=== PATIENT | male | born 1950 | race Caucasian/White ===

== ENCOUNTER 2021-07-14 15:12 | Emergency (ER) | payer MEDICARE, OTHER, SELFPAY ==
[2021-07-14 15:17] VITALS: BP 126/72; PULSE 91; RESP 17; TEMP 36.8; O2SAT 96; BMI 32.5
--- NOTE | 2021-07-14 15:23 | CT_ITS ---
STUDY: CT BRAIN WITHOUT CONTRAST REASON FOR EXAM: Male, 70 years old. FALL, HEAD INJURY RADIATION DOSAGE (If Supplied By Facility): CTDIvol = ( 44.99 ) mGy, DLP = ( 846.73 ) mGycm TECHNIQUE: Transaxial CT imaging of the brain was performed without administration of intravenous contrast material. Individualized dose optimization techniques were used for this CT. COMPARISON: No relevant priors. FINDINGS: Scalp hematoma and laceration overlying the posterior left occipital parietal bones. Normal calvarium. There is mild cerebral atrophy with widening of the extra-axial spaces and ventricular dilatation. There are areas of decreased attenuation within the white matter tracts of the supratentorial brain, consistent with microvascular disease changes. Normal basal ganglia and thalami. Normal brainstem. Normal cerebellum. There is no intracranial hemorrhage. There are no findings of an acute ischemic infarction. Atherosclerotic calcification of the cavernous portions of the internal carotid arteries bilaterally. Normal visualized paranasal sinuses. CT/Brain/Head without Contrast IMPRESSION: Chronic involutional changes of the brain. Scalp hematoma overlying the posterior left occipitoparietal bones. Electronically Signed: Jacob Camarillo MD at 15:54 EST ,
--- NOTE | 2021-07-14 16:07 | ED.VIS.FALL ---
HPI <YOUSIF Robbins - Last Filed: 07/14/21 17:14> HPI - Fall History of Present Illness Chief Complaint: Fall Narrative Narrative: Patient presents with scalp laceration after a fall. He states the store he was at did not have a restroom so he used the [employer] across the street. When coming out he slipped on ice and fell backwards and struck his head on the ground. No LOC. He does have a bleeding scalp laceration. He takes Eliquis for A. fib. He denies headache, nausea, vomiting, or vision changes. His only other complaint is low back pain. PFSH <YOUSIF Robbins Last Filed: 07/14/21 17:14> PFSH Home Medications oxycodone-acetaminophen [Percocet] 1 tab PO Q6H PRN 3 Days #12 tab 07/14/21 [Rx Last Taken Unknown] Allergy/AdvReac Type Severity Reaction Status Date / Time No Known Allergies Allergy Verified 07/14/21 15:22 Social History Smoking Status: Never smoker ROS <YOUSIF Robbins Last Filed: 07/14/21 17:14> ROS ED ROS Narrative Constitutional: Negative for fever, chills, malaise. Eyes: Negative for visual change. ENT: Negative for sore throat, ear pain, rhinorrhea. CVS: Negative for palpitations, chest pain, syncope. Respiratory: Negative for shortness of breath, cough, orthopnea. GI: Negative for abdominal pain, nausea, vomiting.. : Negative for dysuria, hematuria or frequency. Neuro: Negative for headache, motor/sensory dysfunction. Skin: Negative for rash, abscess, or wound. Musc: Negative for joint pain, swelling, trauma. Heme: Positive for easy bruising, bleeding on anticoagulation. EXAM <YOUSIF Robbins Last Filed: 07/14/21 17:14> Physical Exam Narrative Exam Narrative: CONST: Patient sitting in no acute distress. EYES: Normal inspection. PERRLA, EOMI. HEAD: Normocephalic, 1 cm laceration left occipital region, no raccoon eyes or benedict sign, no hemotympanum, no nasal septal hematoma, no CSF otorrhea or rhinorrhea. NECK: Normal inspection. No midline spinal tenderness, no step off or crepitus. RESP: No respiratory distress, CTAB. CVS: Regular rate and rhythm, no murmur, no gallop. ABD: Soft and nontender, no guarding or rebound, nondistended, no hepatosplenomegaly. Back: Normal inspection, TTP over lumbar spine without step-off, otherwise no spinal tenderness. SKIN: Color normal, no rash, warm, dry, intact. EXTREMITIES: Normal appearance, no pedal edema. Full range of motion, 2+ radial and PT pulses. NEURO: Oriented x4. PSYCH: Normal affect. Const Vital Signs: 07/14/21 15:17 07/14/21 17:22 Temperature 98.2 F Temperature Source Temporal Pulse Rate 91 86 Respiratory Rate 17 18 Blood Pressure 126/72 H 142/104 H Blood Pressure Mean 90 Pulse Ox 96 Oxygen Delivery Method Room Air <Dr. Vidal Renae MD - Last Filed: 07/14/21 18:57> Physical Exam Const Vital Signs: 07/14/21 15:17 07/14/21 17:22 Temperature 98.2 F Temperature Source Temporal Pulse Rate 91 86 Respiratory Rate 17 18 Blood Pressure 126/72 H 142/104 H Blood Pressure Mean 90 Pulse Ox 96 Oxygen Delivery Method Room Air MDM <YOUSIF Robbins - Last Filed: 07/14/21 17:14> [facility] Narrative Medical decision making narrative: Patient had a mechanical fall on ice with closed head injury without loss of consciousness. He is on Eliquis for A. fib. He appears well and nontoxic. Vital signs within normal limits. He has an occipital scalp laceration with active bleeding. No signs of basilar skull fracture. No cervical midline spinal tenderness or step-offs. He does have midline lumbar tenderness without step-off. Extremities are nontender with full range of motion and are neurovascularly intact. He denies headache, nausea, vomiting, vision changes. CT brain and lumbar x-rays are negative. The occipital wound was thoroughly cleansed with sterile saline and closed with 4 zafar. We discussed wound care and that zafar need removed in 7 days. Tetanus was updated and he was prescribed percocet as he cannot take NSAIDs on OAC. He was counseled on head injury precautions and was discharged in stable condition. Diagnoses 1. Closed head injury without loss of consciousness 2. Occipital scalp laceration?4 zafar 3. Low back contusion Radiography Diagnostic Testing: Clinical Impression(s) from Imaging Studies Brain CT 07/14/21 15:23 IMPRESSION: Chronic involutional changes of the brain. Scalp hematoma overlying the posterior left occipitoparietal bones. Electronically Signed: Jacob Camarillo MD at 15:54 EST , Lumbar Spine X-Ray 07/14/21 16:30 IMPRESSION: Degenerative changes of the spine, as detailed above. No acute fracture Bilateral pars defect with grade 1 spondylolisthesis at L5/S1 Electronically Signed: Tavo Mullen MD at 17:10 EST , <Dr. Vidal Renae MD - Last Filed: 07/14/21 18:57> [facility] Narrative Medical decision making narrative: Patient presents because of blunt trauma. He slipped on ice falling backwards hitting the back of his head. Is on Eliquis. He is on Eliquis because of atrial fibrillation. He has significant bleeding. CT of the head was ordered from triage because patient is on anticoagulant with head trauma. Patient's GCS is 15. He has a nonfocal neurologic exam. The laceration was stapled by me. Total of 4 zafar were placed. Laceration was [address] of the head reviewed by me is negative for any acute intracranial process. Radiologist report was read. X-rays of the spine were obtained which revealed degenerative changes with no evidence of fracture, subluxation or dislocation. 3 views were obtained in total. There is evidence of spondylolisthesis, grade 1. Radiography Diagnostic Testing: Clinical Impression(s) from Imaging Studies Brain CT 07/14/21 15:23 IMPRESSION: Chronic involutional changes of the brain. Scalp hematoma overlying the posterior left occipitoparietal bones. Electronically Signed: Jacob Camarillo MD at 15:54 EST , Lumbar Spine X-Ray 07/14/21 16:30 IMPRESSION: Degenerative changes of the spine, as detailed above. No acute fracture Bilateral pars defect with grade 1 spondylolisthesis at L5/S1 Electronically Signed: Tavo Mullen MD at 17:10 EST Reading Location ID and State: [address] [place] [address] , Service support , Discharge Plan Triage Chief Complaint: Fall ED Provider: Jocy Salmeron Dx/Rx/DC Orders Clinical Impression: CHI (closed head injury), Laceration of scalp, Anticoagulant long-term use Instructions: Concussion Dc, ED Laceration Scalp Stitches or [place] Prescriptions: New oxycodone-acetaminophen [Percocet] 5-325 mg tablet 1 tab PO Q6H PRN (Reason: pain) 3 Days Qty: 12 RF: 0 Activity Restrictions/Additional Instructions: Today your CAT scan showed no broken bones or internal bleeding. We did cleanse the laceration on her head and 4 zafar were put in. These need removed in 7 days. You can shower normally and gently clean the area with soap and water. If it continues to bleed please apply direct pressure for 15 minutes. If you cannot get the bleeding to stop come back to the ER. I prescribed Percocet for pain and recommend you follow-up with your PCP. Disposition Disposition: Home, Self Care Discharge Date/Time: 07/14/21 17:23
--- NOTE | 2021-07-14 16:30 | RAD_ITS ---
STUDY: X-RAY - LUMBAR SPINE REASON FOR EXAM: Male, 70 years old. Low back pain TECHNIQUE: 3 view(s) of the lumbar spine were obtained. COMPARISON: None FINDINGS: Normal lumbar lordosis. There is no substantial scoliosis. There is a normal alignment of the vertebrae from L1 L5. There is a bilateral pars defect and grade 1 spondylolisthesis at L5/S1.. There is diffuse demineralization with multi-level endplate spondylosis. There is multi-level degenerative disc disease with multi-level disc space narrowing. There is no demonstrated fracture. There is atherosclerotic calcification of the abdominal aorta without a demonstrated aneurysm. RAD/Lumbar Spine 2 or 3 Views IMPRESSION: Degenerative changes of the spine, as detailed above. No acute fracture Bilateral pars defect with grade 1 spondylolisthesis at L5/S1 Electronically Signed: Tavo Mullen MD at 17:10 EST ,
[2021-07-14] MEDS: Diphth,Pertuss(Acell),Tet Vac 0.5 ML Vial IM (16:39)
[2021-07-14 17:22] VITALS: BP 142/104; PULSE 86; RESP 18
--- NOTE | 2021-07-15 12:30 | CASEMGMT ---
CONRADO KIRBY ED follow-up: Date of ER visit: 07/14/2021 Presenting ER complaint: Fall CONRADO KIRBY placed call to patient's telephone number listed on demographics and patient answered. CONRADO KIRBY introduced self and role at [facility]. Patient reports feeling remarkably well today and denies headache or dizziness. States a little soreness to back but its getting better. Patient instructed on wound care and encouraged to schedule follow-up appointment with PCP for staple removal. Patient voiced understanding and states he attempted to call PCP but line was busy, will attempt again. Patient denies questions or concerns. CONRADO Pond CM
== END 2021-07-14 17:23 | disposition home or self-care (01) ==
PROVIDERS: Emergency Provider Physician Assistant; Visit Provider Physician Assistant
DX: S01.01XA Laceration without foreign body of scalp, initial encounter (principal); S09.90XA Unspecified injury of head, initial encounter; S30.0XXA Contusion of lower back and pelvis, initial encounter; Z79.01 Long term (current) use of anticoagulants; Z23 Encounter for immunization; W00.0XXA Fall on same level due to ice and snow, initial encounter
CPT/HCPCS: 12001; 70450; 72100; 90471; 90715; 99283